=== PATIENT | female | born 2000 | race Caucasian/White ===

== ENCOUNTER → 2021-04-16 | Outpatient (CLI) | payer OTHER ==
--- NOTE | 2021-04-16 11:59 | US ---
EXAMINATION TYPE: Ultrasound OB <= 14 week fetus DATE OF EXAM: 04/16/2021 9:44 AM COMPARISON: NONE CLINICAL HISTORY: 20-year-old female [id number] Confirm Dates. EXAM PERFORMED: Transabdominal (TA) FINDINGS: EXAM MEASUREMENTS: GESTATIONAL AGE / DATING Physician Established: (13 weeks/5 days) EDC: 10/17/2021 Dates by LMP: LMP unknown ( weeks/ days) Dates by First Scan: Done elsewhere Dates by Current Scan for: (13 weeks/3 days) EDC: 10/19/2021 MATERNAL ANATOMY Uterus: 12.1x9.8x8.1cm Right Ovary: 2.7x1.5x1.4cm Left Ovary: 3.1x1.6x1.4cm Post CDS / Adnexa: WNL Presence of free fluid: NO Presence of corpus luteal cyst: No Presence of subchorionic bleed: No GESTATION / SURVEY CRL: 7.6 (13 weeks/5 days) Yolk Sac (normal less than 6mm): Not Seen Heart Rate: 166 bpm Rhythm: Normal IUP: Viable IUP Age Appropriate Anatomy Cord Insertion: Visualized Limbs: Visualized Date of LMP: Uncertain. The patient's periods are irregular [employer] notes: Viable IUP measuring 13w3d with heart rate of 166bpm IMPRESSION: 1. Single live intrauterine with established gestational age of 13 weeks 5 days by previous dating scanned. Current ultrasound biometry is concordant (13 weeks 3 days). 2. Complete survey recommended at 18-20 weeks.
== END | disposition home or self-care (01) ==
LOC: RADUSWWP 09:12
PROVIDERS: ATTEND Obstetrics & Gynecology
DX: Z34.81 Encounter for supervision of other normal pregnancy, first trimester (principal); Z3A.13 13 weeks gestation of pregnancy
CPT/HCPCS: 76801